=== PATIENT | male | born 1940 | race Caucasian/White ===

== ENCOUNTER → 2018-05-07 08:00 | Outpatient (CLI) | payer MEDICARE ==
[~2018-05-07 08:00] MED LIST: CENTRUM MEN'S1 EACH PO; CLARITIN 10 MG10 MG PO; FLOMAX0.4 MG PO; LIPITOR40 MG PO; LISINOPRIL20 MG PO; LITE COAT ASPI325 MG PO; PEPCID AC20 MG PO
== END | disposition home or self-care (01) ==
LOC: D.OPS 08:00 → D.PAN 05-09 07:30 → EDSTATUS 05-09 07:30
PROVIDERS: ATTEND Orthopaedic Surgery
DX: M75.100 Unspecified rotator cuff tear or rupture of unspecified shoulder, not specified as traumatic (principal)

== ENCOUNTER 2018-05-18 05:20 | Day surgery (SDC) | payer MEDICARE ==
[2018-05-17 10:10] LABS: BASOPHILS 0.7 % (0-2); EOSINOPHILS 2.7 % (0-7); HEMATOCRIT 43.4 % (42.0-54.0); HEMOGLOBIN 14.9 g/dL (13.5-17.5); IMMATURE GRANULOCYTES 0.1 % (0-5); LYMPHOCYTES 28.6 % (15-50); MCH 32.7 pg (26.0-34.0); MCHC 34.3 g/dL (31.0-37.0); MCV 95.2 fL (80.0-100.0); MONOCYTES 9.5 % (2-11); NEUTROPHILS 58.4 % (40-80); PLATELET COUNT 203 10x3/uL (130-400); RBC 4.56 10x6/uL (4.20-6.10); RDW 14.3 % (11.5-14.5); WBC 7.3 10x3/uL (4.8-10.8)
[2018-05-17 10:13] LABS: CALC OSMOLALITY 282 mosm/kg (275-300); CALCIUM 9.2 mg/dL (8.5-10.1); CARBON DIOXIDE 28.6 mmol/L (21.0-32.0); CHLORIDE - SERUM 102 mmol/L (98-107); GLUCOSE 163 mg/dL (74-106); POTASSIUM - SERUM 4.3 mmol/L (3.5-5.1); SODIUM 140 mmol/L (136-145); UREA NITROGEN 13 mg/dL (7-18); eGFR NON AFRICAN AMERICAN 76 mL/min (90-120)
[~2018-05-18] VITALS: Ht 175.3 cm; Wt 92.1 kg
[2018-05-18 06:25] VITALS: BP 145/67; Ht 175.3 cm; Wt 92.1 kg
--- NOTE | 2018-05-18 15:26 | NUR ---
DRESSING CHANGED. 4X4 GAUZE AND ABD PAD ONLY. SITE IS WELL APPROXIMATED NO SIGNS OF ACTIVE BLEEDING.
== END 2018-05-18 15:50 | disposition home or self-care (01) ==
LOC: D.OPS 05:20 → D.PAN 07:30 → D.OPS 07:30
PROVIDERS: ATTEND Orthopaedic Surgery
DX: M65.812 Other synovitis and tenosynovitis, left shoulder (principal); M19.012 Primary osteoarthritis, left shoulder; M75.42 Impingement syndrome of left shoulder; M75.122 Complete rotator cuff tear or rupture of left shoulder, not specified as traumatic; S43.492A Other sprain of left shoulder joint, initial encounter; S46.212A Strain of muscle, fascia and tendon of other parts of biceps, left arm, initial encounter; X58.XXXA Exposure to other specified factors, initial encounter; M13.812 Other specified arthritis, left shoulder; Z01.812 Encounter for preprocedural laboratory examination